=== PATIENT | male | born 1965 | race Caucasian/White ===

== ENCOUNTER 2018-04-08 18:50 | Emergency (ER) | payer OTHER ==
[~2018-04-08] VITALS: Ht 177.8 cm; Wt 79.4 kg
[~2018-04-08 18:50] MED LIST: FLEXERIL10 MG PO; KETO10TA2 PO; PERCOCET 5/3251 TAB PO
[2018-04-09] MEDS ORDERED: SKELAXIN800 MG PO (11:09)
[2018-04-09] MEDS ORDERED: MEDROLPACK PO (11:09)
== END 2018-04-09 11:23 | disposition home or self-care (01) ==
LOC: ER 18:50
DX: M54.16 Radiculopathy, lumbar region (principal); M51.36 Other intervertebral disc degeneration, lumbar region; M54.5 Low back pain; M48.061 Spinal stenosis, lumbar region without neurogenic claudication
CPT/HCPCS: 72158

== ENCOUNTER 2018-05-07 09:27 | Outpatient (CLI) | payer OTHER ==
[~2018-05-07 09:27] MED LIST changes: +MEDROLPACK PO; +SKELAXIN800 MG PO
== END 2018-05-07 09:35 | disposition home or self-care (01) ==
LOC: RAD 09:27 → LAB 09:27 → RAD 09:35
DX: M51.36 Other intervertebral disc degeneration, lumbar region (principal); E55.9 Vitamin D deficiency, unspecified

== ENCOUNTER 2018-06-23 09:45 | Outpatient (CLI) | payer OTHER | END 2018-06-23 11:44 | disposition home or self-care (01) | LOC: SONOGRAMA 09:45 | DX: N50.89 Other specified disorders of the male genital organs (principal) ==

== ENCOUNTER 2018-10-16 09:06 | Outpatient (CLI) | payer OTHER | END 2018-10-16 09:18 | disposition home or self-care (01) | LOC: MRI 09:06 | DX: R10.31 Right lower quadrant pain (principal) | CPT/HCPCS: 72195 ==

== ENCOUNTER 2018-12-18 08:19 | Outpatient (CLI) | payer OTHER | END 2018-12-18 08:36 | disposition home or self-care (01) | LOC: MRI 08:19 | DX: M54.5 Low back pain (principal); Z51.81 Encounter for therapeutic drug level monitoring | CPT/HCPCS: 72158 ==

== ENCOUNTER 2019-04-17 07:51 | Outpatient (CLI) | payer OTHER | END 2019-04-17 08:03 | disposition home or self-care (01) | LOC: RAD 07:51 | DX: M25.552 Pain in left hip (principal); M25.551 Pain in right hip ==

== ENCOUNTER → 2022-05-08 | Emergency (ER) | payer OTHER ==
[~2022-05-08] VITALS: Ht 170.2 cm; Wt 74.8 kg
== END | disposition left against medical advice (07) ==
LOC: ER 06:15
DX: Z53.21 Procedure and treatment not carried out due to patient leaving prior to being seen by health care provider (principal)

== ENCOUNTER 2024-04-15 14:43 | Inpatient (IN) | payer OTHER ==
[~2024-04-15] VITALS: Ht 175.3 cm; Wt 68.0 kg
[2024-04-15] MEDS ORDERED: HYOSCYAMINE SULFATE 0.125 MG TAB.SUBL PO ONE (16:30)
[2024-04-15] MEDS ORDERED: FAMOTIDINE/PF 20 MG/2 ML VIAL ONE (16:30)
[2024-04-15] MEDS ORDERED: 0.9 % SODIUM CHLORIDE 500 ML IV SCH (16:30)
[2024-04-15] MEDS ORDERED: HYOSCYAMINE SULFATE 0.125 MG TAB.SUBL ONE (16:30)
[2024-04-15] MEDS ORDERED: ONDANSETRON HCL 2 MG/ML VIAL IV ONE (16:30)
[2024-04-15] MEDS ORDERED: FAMOTIDINE/PF 20 MG/2 ML VIAL IV ONE (16:30)
[2024-04-15] MEDS ORDERED: ONDANSETRON HCL 2 MG/ML VIAL ONE (16:30)
[2024-04-15 16:51] LABS: HEMATOCRIT 37.9 % (39.0-48.0); HEMOGLOBIN 13.4 g/dL (13-16.00); MEAN CELL VOLUME 92.9 fL (80.0-100.00); MEAN CORPUSCULAR HGB CONC 35.5 g/dl (32.0-36.0); PLATELET COUNT 290 K/uL (150-450); RED BLOOD COUNT 4.08 M/uL (4.00-6.00); RED CELL DISTRIBUTION WIDTH 13.3 % (11.5-14.5)
[2024-04-15 17:14] LABS: BILIRUBIN TOTAL 1.28 mg/dL (0.3-1.2); CALCIUM 9.8 mg/dL (8.5-10.1); CREATININE SERUM 0.78 mg/dL (0.70-1.30); GFR 102.23; POTASSIUM 4.55 mEq/L (3.5-5.1)
[2024-04-15 17:20] LABS: BILIRUBIN,CONJUGATED 0.67 mg/dL (0.0-0.2); BILIRUBIN,UNCONJUGATED 0.61 mg/dL (0.0-0.6)
[2024-04-15] MEDS ORDERED: PIPERACILLIN/TAZOBACTAM SODIUM 3.375 GM in DEXTROSE 5 % IN WATER 100 ML IV SCH (19:44)
[2024-04-15] MEDS ORDERED: ONDANSETRON HCL 4 MG in 0.9 % SODIUM CHLORIDE 50 ML IV PRN (19:45)
[2024-04-15] MEDS ORDERED: MEPERIDINE HCL/PF 25 MG/ML VIAL IM PRN (20:00)
[2024-04-15] MEDS ORDERED: MORPHINE SULFATE 4 MG/ML CARTRIDGE IV PRN (20:00)
[2024-04-15] MEDS ORDERED: KETOROLAC TROMETHAMINE 15 MG VIAL IV ONE (20:00)
[2024-04-15] MEDS ORDERED: ACETAMINOPHEN 500 MG GEL..CAP PO PRN (20:00)
[2024-04-15] MEDS ORDERED: 0.9 % SODIUM CHLORIDE 1,000 ML IV SCH (20:00)
[2024-04-15] MEDS ORDERED: KETOROLAC TROMETHAMINE 30 MG VIAL ONE (22:33)
[2024-04-15] MEDS ORDERED: PIPERACILLIN/TAZOBACTAM SODIUM 3.375 GM VIAL IV ONE ×2 (22:33→23:45)
[2024-04-15 23:56] LABS: INR 1.05; PARTIAL THROMBOPLASTIN TIME 26.2 SECONDS (22.0-34.0)
[2024-04-16 05:10] LABS: URINE APPEARANCE Clear; URINE BILIRRUBIN Negative (NEGATIVE); URINE BLOOD Negative; URINE COLOR Dark Yellow; URINE GLUCOSE Negative (NEGATIVE); URINE KETONE Trace (NEGATIVE); URINE LEUKOCYTE Negative; URINE NITRATE Negative; URINE PROTEIN Trace (NEGATIVE)
[2024-04-16 05:13] LABS: URINE BACTERIA 22.6 uL (0.0-1933); URINE EPITHELIAL CELLS 14.3 uL (0.0-38.8); URINE RBC 24.8 uL (0.0-20.8); URINE WBC 3.2 uL (0.0-23.2)
[2024-04-16 05:55] LABS: ALBUMIN 3.3 gm/dL (3.4-5.0); BILIRUBIN TOTAL 1.38 mg/dL (0.3-1.2); BILIRUBIN,CONJUGATED 0.52 mg/dL (0.0-0.2); BILIRUBIN,UNCONJUGATED 0.86 mg/dL (0.0-0.6); TOTAL PROTEIN 6.9 gm/dL (6.4-8.2)
[2024-04-16] MEDS ORDERED: FAMOTIDINE/PF 20 MG in 0.9 % SODIUM CHLORIDE 8 ML IV PUSH SCH (09:00)
[2024-04-16] MEDS ORDERED: GABAPENTIN400 MG (09:04)
[2024-04-17 05:58] LABS: HEMATOCRIT 37.8 % (39.0-48.0); HEMOGLOBIN 13.3 g/dL (13-16.00); MEAN CELL VOLUME 93.3 fL (80.0-100.00); MEAN CORPUSCULAR HEMOGLOBIN 32.8 pg (27.00-32.0); MEAN CORPUSCULAR HGB CONC 35.1 g/dl (32.0-36.0); PLATELET COUNT 273 K/uL (150-450); RED BLOOD COUNT 4.05 M/uL (4.00-6.00)
[2024-04-17 06:41] LABS: ALBUMIN 3.6 gm/dL (3.4-5.0); ALKALINE PHOSPHATASE 198 U/L (50-136); ALT/SGPT 394 U/L (12-78); ANION GAP 16 (10.0-20.0); AST/SGOT 151 U/L (15-37); BILIRUBIN TOTAL 1.01 mg/dL (0.3-1.2); BLOOD UREA NITROGEN 11 mg/dL (7-18); BUN CREA RATIO 14 (7.0-25.0); CALCIUM 8.8 mg/dL (8.5-10.1); CARBON DIOXIDE 22 mEq/L (21-32); CHLORIDE 103 mmol/L (98-107); CREATININE SERUM 0.77 mg/dL (0.70-1.30); GFR 103.76; GLOBULINA 3.1 G/DL (2.4-3.5); GLUCOSE FASTING 95 mg/dL (65-100); OSMOLALITY SERUM 273 MOSM/KG (275-295); SODIUM 137 mmol/L (136-145); TOTAL PROTEIN 6.7 gm/dL (6.4-8.2)
[2024-04-17 06:47] LABS: C-REACTIVE PROTEIN < 0.29 MG/DL (0.00-0.29)
[2024-04-17] MEDS ORDERED: FAMOTIDINE/PF 20 MG/2 ML VIAL ONE (08:08)
[2024-04-17] MEDS ORDERED: DIATRIZOATE MEGLUMINE, SODIUM 30 ML BOTTLE PO NR (12:15)
[2024-04-17] MEDS ORDERED: MEPERIDINE HCL/PF 25 MG/ML VIAL IM PRN (23:00)
[2024-04-19] MEDS ORDERED: FAMOTIDINE/PF 20 MG/2 ML VIAL ONE (06:59)
[2024-04-20] MEDS ORDERED: FAMOTIDINE/PF 20 MG in 0.9 % SODIUM CHLORIDE 8 ML IV PUSH SCH (21:00)
[2024-04-21] MEDS ORDERED: MEPERIDINE HCL/PF 25 MG/ML VIAL IM PRN (08:15)
[2024-04-22 08:14] LABS: ALBUMIN 3.1 gm/dL (3.4-5.0); BILIRUBIN TOTAL 0.57 mg/dL (0.3-1.2); BILIRUBIN,CONJUGATED 0.22 mg/dL (0.0-0.2); BILIRUBIN,UNCONJUGATED 0.35 mg/dL (0.0-0.6); TOTAL PROTEIN 6.3 gm/dL (6.4-8.2)
[2024-04-22 16:24] LABS: HEMATOCRIT 37.2 % (39.0-48.0); HEMOGLOBIN 12.9 g/dL (13-16.00); MEAN CELL VOLUME 91.7 fL (80.0-100.00); MEAN CORPUSCULAR HEMOGLOBIN 31.8 pg (27.00-32.0); MEAN CORPUSCULAR HGB CONC 34.7 g/dl (32.0-36.0); PLATELET COUNT 328 K/uL (150-450); RED BLOOD COUNT 4.06 M/uL (4.00-6.00); RED CELL DISTRIBUTION WIDTH 13.6 % (11.5-14.5)
[2024-04-22 16:40] LABS: ALBUMIN 3.7 gm/dL (3.4-5.0); BILIRUBIN TOTAL 0.5 mg/dL (0.3-1.2); CALCIUM 9.1 mg/dL (8.5-10.1); CREATININE SERUM 0.75 mg/dL (0.70-1.30); GFR 106.96; GLOBULINA 3.7 G/DL (2.4-3.5); POTASSIUM 3.74 mEq/L (3.5-5.1); TOTAL PROTEIN 7.4 gm/dL (6.4-8.2)
[2024-04-23] MEDS ORDERED: IOVERSOL 320 MG/ML - 50 ML VIAL IV ONE (09:30)
[2024-04-23] MEDS ORDERED: GLUCAGON 1 MG VIAL IV ONE (09:30)
[2024-04-23] MEDS ORDERED: ENALAPRILAT DIHYDRATE 1.25 MG/ML VIAL IV STA (10:47)
[2024-04-23 13:09] LABS: igg 770 mg/dL (603-1613); igg 1 325 mg/dL (248-810); igg 2 278 mg/dL (130-555); igg 3 47 mg/dL (15-102); igg 4 42 mg/dL (2-96)
[2024-04-23] MEDS ORDERED: MORPHINE SULFATE 4 MG/ML CARTRIDGE IV PRN (22:45)
== END 2024-04-24 14:38 | disposition home or self-care (01) | DRG 444 ==
LOC: ER 14:44 → MEDI 20:04 → SEC-K 20:04 → MEDI 04-16 12:20
PROVIDERS: General Practice; Internal Medicine Gastroenterology; Internal Medicine Infectious Disease; ADMIT Internal Medicine; ATTEND Internal Medicine
PROC: BW40ZZZ Ultrasonography of Abdomen (ICD-10-PCS; 2024-04-15)
PROC: BF37ZZZ Magnetic Resonance Imaging (MRI) of Pancreas (ICD-10-PCS; 2024-04-15)
PROC: BW21YZZ Computerized Tomography (CT Scan) of Abdomen and Pelvis using Other Contrast (ICD-10-PCS; 2024-04-17)
PROC: 0FJD8ZZ Inspection of Pancreatic Duct, Via Natural or Artificial Opening Endoscopic (ICD-10-PCS; principal; 2024-04-23 07:00)
DX: K80.10 Calculus of gallbladder with chronic cholecystitis without obstruction (principal); K85.10 Biliary acute pancreatitis without necrosis or infection; K83.8 Other specified diseases of biliary tract; R10.13 Epigastric pain

== ENCOUNTER 2025-08-30 15:51 | Emergency (ER) | payer OTHER ==
[~2025-08-30] VITALS: Ht 175.3 cm; Wt 64.4 kg
[~2025-08-30 15:51] MED LIST changes: +GABAPENTIN400 MG
[2025-08-30] MEDS ORDERED: CLONAZEPAM1 MG PO (16:17)
[2025-08-30] MEDS ORDERED: NEURONTIN300 MG PO (16:17)
[2025-08-30] MEDS ORDERED: FINASTERIDE1 MG PO (16:17)
[2025-08-30] MEDS ORDERED: AMBIEN5 MG PO (16:17)
[2025-08-30] MEDS ORDERED: LIDOCAINE HCL 1% 10ML VIAL ONE (19:39)
[2025-08-30] MEDS ORDERED: HYDROGEN PEROXIDE 473 ML BOTTLE TOP ONE (19:45)
== END 2025-08-30 23:28 | disposition home or self-care (01) ==
LOC: ER 15:52
DX: S61.216A Laceration without foreign body of right little finger without damage to nail, initial encounter (principal); S01.312A Laceration without foreign body of left ear, initial encounter; W25.XXXA Contact with sharp glass, initial encounter; Y93.G1 Activity, food preparation and clean up; Y92.89 Other specified places as the place of occurrence of the external cause; Y99.8 Other external cause status